=== PATIENT | female | born 1955 ===

== ENCOUNTER → 2023-07-29 13:36 | Outpatient (REF) | payer OTHER, SELFPAY ==
[2023-07-29 14:05] VITALS: BP 176/86; BP_SYST 130
== END ==
LOC: RADI 13:36
PROVIDERS: ATTENDING PHYSICIAN Internal Medicine Endocrinology, Diabetes & Metabolism
DX: E04.1 Nontoxic single thyroid nodule (principal)
CPT/HCPCS: 88173; 10005

== ENCOUNTER → 2023-09-22 08:06 | Outpatient (REF) | payer OTHER, SELFPAY | LOC: HWRCS 08:06 | PROVIDERS: ATTENDING PHYSICIAN Internal Medicine | DX: R03.0 Elevated blood-pressure reading, without diagnosis of hypertension (principal); R00.0 Tachycardia, unspecified; R94.31 Abnormal electrocardiogram [ECG] [EKG] | CPT/HCPCS: 93306 ==

== ENCOUNTER → 2024-07-19 08:44 | Outpatient (REF) | payer OTHER, SELFPAY | LOC: HWRAD 08:44 | PROVIDERS: ATTENDING PHYSICIAN Internal Medicine | DX: Z78.0 Asymptomatic menopausal state (principal) | CPT/HCPCS: 77080 ==

== ENCOUNTER → 2024-07-25 15:02 | Outpatient (REF) | payer OTHER, SELFPAY | LOC: HWRAD 15:02 | PROVIDERS: ATTENDING PHYSICIAN Internal Medicine | DX: R03.0 Elevated blood-pressure reading, without diagnosis of hypertension (principal); M25.551 Pain in right hip; M54.50 Low back pain, unspecified | CPT/HCPCS: 72110; 73502 ==

== ENCOUNTER → 2025-03-22 16:33 | Outpatient (REF) | payer OTHER, SELFPAY | LOC: MRI 3T 16:33 | PROVIDERS: ATTENDING PHYSICIAN Surgery; FAMILY PHYSICIAN Internal Medicine | DX: N64.52 Nipple discharge (principal) | CPT/HCPCS: 77049; A9585 ==

== ENCOUNTER → 2025-03-28 14:48 | Outpatient (REF) | payer OTHER, SELFPAY | LOC: WDC 14:48 | PROVIDERS: ATTENDING PHYSICIAN Surgery; FAMILY PHYSICIAN Internal Medicine | DX: R92.8 Other abnormal and inconclusive findings on diagnostic imaging of breast (principal) | CPT/HCPCS: 76642 ==

== ENCOUNTER 2025-05-05 06:09 | Day surgery (SDC) | payer OTHER, SELFPAY ==
[2025-04-21 11:17] LABS: Hematocrit 35.6 % (37.0-47.0); Hemoglobin 12.2 g/dL (12.0-16.0); Mean Corp Hgb Conc. 34.3 g/dL (33.0-37.0); Mean Corpuscular Volume 86.8 fL (81.0-99.0); Platelet Count 235 10^3/uL (130-400); Red Cell Dist. Width 13.1 % (11.5-14.5)
[2025-04-21 11:44] LABS: ALT (SGPT) 19 U/L (0-35); AST (SGOT) 19 U/L (14-36); Albumin 4.3 g/dl (3.5-5.0); Alkaline Phosphatase 111 U/L (38-126); Blood Urea Nitrogen 25 mg/dl (7-17); Calcium 9.8 mg/dl (8.4-10.2); Carbon Dioxide 29 mmol/L (22-30); Chloride 104 mmol/L (98-107); Glucose 95 mg/dl (70-99); Potassium 4.7 mmol/L (3.5-5.1); Sodium 137 mmol/L (135-145); Total Protein 7.4 g/dl (6.3-8.2); eGFR > 60.00
[2025-04-21 11:49] LABS: Prealbumin (Transthyretin) 28.6 mg/dl (17.6-36.0)
[2025-04-21 11:58] LABS: Vitamin D, 25-OH*** 41.4 ng/mL (30-80)
[2025-04-21 14:10] VITALS: BMI 34.0
[2025-05-05] VITALS (7 sets, daily range): BP systolic 116–166; BP diastolic 70–95; BMI 34.0
[2025-05-05] MEDS: TYLENOL 1000 MG PO (09:52)
[2025-05-05] MEDS: NORMOSOL-R/PLASMALYTE-A 1000 IV (09:53)
--- NOTE | 2025-05-05 11:38 | W.IMMPOSTOP ---
Surgical Immed Post Op Note
-
Primary Surgeon: Chris
Assisting Surgeon: None
Pre-op Diagnosis: Pathologic discharge left breast
Post-op Diagnosis: Same
Procedure Performed: Exploration left nipple areolar complex and excision central duct
Anesthesia Type: TIVA
Specimen / Cultures: Left central duct complex
Estimated Blood Loss: 4cc
Complications: None
Operative Findings: Dilated duct removed
--- NOTE | 2025-05-05 11:40 | OR.RPT ---
Operative Report
Operative Report
Date of procedure: 05/05/2025
Surgeon: Chris
Preoperative diagnosis: Pathologic discharge left breast
Postoperative diagnosis: Same
Procedure: Exploration left nipple areolar complex and excision central duct
The patient is a 69-year-old female who experienced pathologic spontaneous discharge from the left nipple areolar complex. Mammography and ultrasound were negative and an MRI showed non-mass enhancement in the immediate left retroareolar region.
She presents for exploration and excision of the involved central duct.
On the day of the procedure the patient presented to the same-day surgical services unit. She verified site and procedure and was prepped for surgery. DVT and antibiotic prophylaxis were provided. She was transferred to the operating room and in
the supine position intravenous sedation was delivered. The left breast was prepped and draped in usual sterile fashion. Appropriate timeout procedure was performed by all staff members.
All tissues were anesthetized with 1% lidocaine plain. An inferior circumareolar incision was made sharply with the blade. The nipple areolar flap was elevated using the cautery and there was dense fibrous tissue and left retroareolar region which
was transected. A dilated duct was seen within this tissue which was widely resected. Time out of body was noted and the specimen was oriented for the pathologist and sent for permanent analysis. Hemostasis was maintained with the cautery.
Marcaine 0.5% plain was instilled into all tissues and the wound was closed using simple interrupted 2-0 Polysorb on deep and intermediate tissues. Subcutaneous tissue was closed with 2-0 and 3-0 Polysorb simple interrupted sutures. The skin was
closed with a running subcuticular 4-0 Monocryl. A few simple interrupted Monocryl's were placed for extra support. Surgical glue and a sterile compressive dressing were applied. All sponge needle and instrument counts were correct and the
patient was transferred to the recovery room in stable condition.
()
== END 2025-05-05 14:02 | disposition home or self-care (01) ==
LOC: SDS 06:09
PROVIDERS: ATTENDING PHYSICIAN Surgery; FAMILY PHYSICIAN Internal Medicine
DX: N60.42 Mammary duct ectasia of left breast (principal); N64.52 Nipple discharge
CPT/HCPCS: 19110; 36415; 80053; 82306; 84134; 85027; 88307; 93005